=== PATIENT | male | born 1950 | race Caucasian/White ===

== ENCOUNTER 2022-05-20 08:27 | Outpatient (CLI) | payer MEDICARE, BC, SELFPAY ==
[2022-05-20 14:09] LABS: Chloride* 101 mmol/L (96-114)
[2022-05-20 14:10] LABS: Sodium* 140 mmol/L (135-149)
[2022-05-20 14:12] LABS: Carbon Dioxide* 28 mmol/L (20-32); Cholesterol* 111 mg/dL (90-199); Creatinine* 1.3 mg/dL (0.5-1.5); Estimated Glomerular Filt Rate 59 ml/min
[2022-05-20 14:13] LABS: Blood Urea Nitrogen* 17 mg/dL (7-30); Calcium* 9.6 mg/dL (8.4-10.6); Glucose* 92 mg/dL (60-115); HDL Cholesterol* 37 mg/dL (>=40); LDL Cholesterol Calculated 55 mg/dL (<100); Triglycerides* 95 mg/dL (40-149)
[2022-05-20 14:24] LABS: Potassium* 4.7 mmol/L (3.6-5.1)
[2022-05-20 14:43] LABS: PSA Screen* 3.15 ng/mL (0.10-4.00)
== END 2022-05-20 08:28 | disposition home or self-care (01) ==
PROVIDERS: PCP Family Medicine; Visit Provider Family Medicine
DX: E78.5 Hyperlipidemia, unspecified (principal); I10 Essential (primary) hypertension; Z12.5 Encounter for screening for malignant neoplasm of prostate
CPT/HCPCS: 80048; 80061; 84153

== ENCOUNTER 2022-05-30 14:47 | Outpatient (CLI) | payer MEDICARE, BC, SELFPAY | END 2022-05-30 14:48 | disposition home or self-care (01) | LOC: RAD 14:48 | PROVIDERS: PCP Family Medicine; Visit Provider Family Medicine | DX: R01.1 Cardiac murmur, unspecified (principal); I51.7 Cardiomegaly; I34.0 Nonrheumatic mitral (valve) insufficiency; I07.1 Rheumatic tricuspid insufficiency | CPT/HCPCS: 93306 ==

== ENCOUNTER 2023-05-14 09:10 | Outpatient (CLI) | payer MEDICARE, BC, SELFPAY | END 2023-05-14 09:11 | disposition home or self-care (01) | PROVIDERS: PCP Family Medicine; Visit Provider Family Medicine | DX: I10 Essential (primary) hypertension (principal); E78.5 Hyperlipidemia, unspecified; Z12.5 Encounter for screening for malignant neoplasm of prostate | CPT/HCPCS: 80048; 80061; 84153 ==

== ENCOUNTER 2023-06-02 12:43 | Outpatient (CLI) | payer MEDICARE, BC, SELFPAY | END 2023-06-02 12:44 | disposition home or self-care (01) | LOC: RAD 12:45 | PROVIDERS: PCP Family Medicine; Visit Provider Internal Medicine | DX: I48.91 Unspecified atrial fibrillation (principal); I51.7 Cardiomegaly; I34.0 Nonrheumatic mitral (valve) insufficiency; I07.1 Rheumatic tricuspid insufficiency | CPT/HCPCS: 93306 ==

== ENCOUNTER 2024-05-07 08:45 | Outpatient (CLI) | payer MEDICARE, BC, SELFPAY ==
[2024-05-07] MEDS: PERFLUTREN LIPID MICROSPHERES 2 ML VIAL IV (09:56)
--- NOTE | 2024-05-07 09:58 | PC.NURSE ---
20G IV placed in right FA. Definity given per health information tech instruction. Saline lock removed intact.
== END 2024-05-07 08:46 | disposition home or self-care (01) ==
LOC: RAD 08:46
PROVIDERS: PCP Family Medicine; Visit Provider Internal Medicine
DX: I34.0 Nonrheumatic mitral (valve) insufficiency (principal); I51.7 Cardiomegaly; I07.1 Rheumatic tricuspid insufficiency
CPT/HCPCS: 93306; Q9957

== ENCOUNTER 2024-05-18 09:10 | Outpatient (CLI) | payer MEDICARE, BC, SELFPAY | END 2024-05-18 09:11 | disposition home or self-care (01) | PROVIDERS: PCP Family Medicine; Visit Provider Family Medicine | DX: Z00.00 Encounter for general adult medical examination without abnormal findings (principal); I10 Essential (primary) hypertension; R53.83 Other fatigue; Z13.0 Encounter for screening for diseases of the blood and blood-forming organs and certain disorders involving the immune mechanism; Z79.01 Long term (current) use of anticoagulants | CPT/HCPCS: 80048; 80061 ==

== ENCOUNTER 2025-05-20 09:01 | Outpatient (CLI) | payer MEDICARE, BC, SELFPAY | END 2025-05-20 09:02 | disposition home or self-care (01) | PROVIDERS: PCP Family Medicine; Visit Provider Family Medicine | DX: E78.2 Mixed hyperlipidemia (principal); I10 Essential (primary) hypertension | CPT/HCPCS: 80048; 80061 ==